=== PATIENT | male | born 1965 | race Two or more races ===

== ENCOUNTER 2018-02-17 20:04 | Emergency (ER) | payer OTHER ==
[~2018-02-17] VITALS: Ht 188 cm; Wt 108.9 kg
--- NOTE | 2018-02-17 20:07 | NUR ---
PT BIBRA COMPLAINING OF HEADACHE X1 DAY. PT TOOK IBUPROFEN [id number] AGO, NO RELIEF. PT ALSO COMPLAINING OF MIDBACK PAIN. PT DENIES SOB, CHEST PAIN, CHANGE IN VISION, TRAUMA, WEAKNESS/TINGLING. PT AAOX4. RESPIRATIONS EVEN AND UNLABORED. SKIN WARM AND INTACT. VITAL SIGNS STABLE. WILL CONTINUE TO MONITOR.
--- NOTE | 2018-02-17 20:10 | NUR ---
ER PA AT BEDSIDE FOR EVALUATION
--- NOTE | 2018-02-17 20:20 | NUR ---
MD GABRIELA AND BRODIE MCCLURE AT BEDSIDE FOR EVALUATION
[2018-02-17] MEDS ORDERED: ONDANSETRON 4 MG TAB.RAPDIS PO ONE (20:30)
[2018-02-17] MEDS ORDERED: MORPHINE SULFATE INJ 2 MG/ML DISP.SYRIN IM ONE (20:30)
[2018-02-17] MEDS ORDERED: MORPHINE SULFATE INJ 4 MG/ML DISP.SYRIN ONE (20:35)
[2018-02-17] MEDS ORDERED: ONDANSETRON 4 MG TAB.RAPDIS ONE (20:35)
--- NOTE | 2018-02-17 23:04 | NUR ---
Patient discharged to home in stable condition. Written and verbal after care instructions given. Patient verbalizes understanding of instruction. Pt instructed not to drive. Picked up by sister, left by wheelchair
[2018-02-17 23:05] VITALS: BP 134/63
== END 2018-02-17 23:06 | disposition home or self-care (01) ==
LOC: ER 20:06
DX: R51 Headache (principal); M54.2 Cervicalgia; M54.6 Pain in thoracic spine; I10 Essential (primary) hypertension; Z88.0 Allergy status to penicillin; Z88.8 Allergy status to other drugs, medicaments and biological substances
CPT/HCPCS: 70450-TC; 72125-TC; 72128-TC; A4606; J2270; L0172; Q0162; Z7610